=== PATIENT | male | born 1975 | race Two or more races ===

== ENCOUNTER 2017-02-25 09:52 | Inpatient (IN) | payer OTHER ==
[~2017-02-25] VITALS: Ht 175.3 cm; Wt 100.7 kg
[2017-02-25] VITALS (11 sets, daily range): BP systolic 126–143; BP diastolic 76–90
[~2017-02-25 09:52] MED LIST: Atropine Inj 1mg/10ml Syr IV PRN; DiphenhydrAMINE 50mg/ml Inj IVP PRN; Hydromorphone 0.5mg/0.5ml inj IVP PRN; Ketorolac 30mg Inj IV PRN; Ketorolac 60mg Inj IV PRN; LORazepam Inj 2mg/ml 1ml IV PRN; LR 1000ml 1,000 ML IVLG SCH; Meperidine 25mg/0.5ml Inj IV PRN; Metoclopramide 10mg/2ml Inj IVP PRN; Midazolam 2mg/2ml Inj IVP PRN; Norco 5mg/325mg tab ORAL PRN; Norco 7.5mg/325mg tab ORAL PRN; Oxycodone/Acetaminophen 5-325 ORAL PRN; fentaNYL 100 mcg/2 mL IV PRN
[2017-02-25] MEDS ORDERED: Thrombin 5000 units TOPIC ONE (10:43)
[2017-02-25] MEDS ORDERED: Bupivacaine w/Epi 0.5% 30ml Vial INJ ONE (10:43)
[2017-02-25] MEDS ORDERED: Bacitracin 50000 Units Vial ONE (10:44)
[2017-02-25] MEDS ORDERED: Thrombin 5000 units spray kit TOPIC ONE (10:44)
[2017-02-25] MEDS ORDERED: Gelfoam Absorbable 1gm powder pkt TOPIC ONE (10:44)
[2017-02-25] MEDS ORDERED: MELOXICAM15 MG PO (10:53)
[2017-02-25] MEDS ORDERED: PROTONIX20 MG ORAL (10:53)
[2017-02-25] MEDS ORDERED: [UNRECOGNIZED DRUG - OTHER] TP (10:53)
[2017-02-25] MEDS ORDERED: TRAMADOL HCL150 MG ORAL (10:53)
--- NOTE | 2017-02-25 11:27 | Pre-Procedure Note/Attestation ---
Pre-Procedure Note/Attestation Complete Prior to Procedure Planned Procedure: not applicable Procedure Narrative: L4-5, L5/S1 Instability and disc herniations, for ALIF L4-5, L5/S1 Indications for Procedure Pre-Operative Diagnosis: L4-5, L5/S1 Instability and disc herniations Attestation I attest that I discussed the nature of the procedure; its benefits; risks and complications; and alternatives (and the risks and benefits of such alternatives ), prior to the procedure, with the patient (or the patient's legal appliance service representative). I attest that, if there was a reasonable possibility of needing a blood transfusion, the patient (or the patient's legal appliance service representative) was given the [place] Department [employer] Services standardized written summary, pursuant to the [employer] [place] Blood Safety Act ([place] Health and Safety Code # 1645, as amended). I attest that I re-evaluated the patient just prior to the surgery and that there has been no change in the patient's H&P, except as documented below: IVAN VENTURA Feb 25, 2017 11:27
[2017-02-25] MEDS ORDERED: Heparin 5000 units/ml inj ONE (11:44)
[2017-02-25] MEDS ORDERED: Glycopyrrolate 0.2mg/ml 1ml Vial ONE (12:00)
[2017-02-25] MEDS ORDERED: fentaNYL 250mcg/5ml ONE (12:00)
[2017-02-25] MEDS ORDERED: fentaNYL 100 mcg/2 mL IV ONE (12:00)
[2017-02-25] MEDS ORDERED: Sterile Water Irrig 1000ml IRRIG ONE (12:00)
[2017-02-25] MEDS ORDERED: Nimbex 2mg/ml Inj 10ML IVP ONE (12:00)
[2017-02-25] MEDS ORDERED: Atropine Sulfate 0.4mg/ml inj ONE (12:00)
[2017-02-25] MEDS ORDERED: Neostigmine 1mg/ml 10ml Inj ONE (12:00)
[2017-02-25] MEDS ORDERED: Propofol 10mg/ml 20ml IV ONE (12:00)
[2017-02-25] MEDS ORDERED: NS Irrig 1000ml ONE (12:00)
[2017-02-25] MEDS ORDERED: Zemuron 50mg/5ml Inj IV ONE (12:00)
[2017-02-25] MEDS ORDERED: Lidocaine 1% MPF 10mg/ml 5ml ONE (12:00)
[2017-02-25] MEDS ORDERED: LR 1000ml ONE (12:00)
--- NOTE | 2017-02-25 13:20 | Anethesia Preoperative Eval ---
Anesthesia Pre-op PMH/ROS General Date of Evaluation: Feb 25, 2017 Time of Evaluation: 12:11 Anesthesiologist: Carla ASA Score: ASA 3 Mallampati Score Class I : Soft palate, uvula, fauces, pillars visible Class II: Soft palate, uvula, fauces visible Class III: Soft palate, base of uvula visible Class IV: Only hard plate visible Mallampati Classification: Class III Surgeon: Roxanne Diagnosis: Back Pain Surgical Procedure: ACDF L5-S1, L4-5 Anesthesia History: none Family History: no anesthesia problems Allergies: Coded Allergies: No Known Allergies (Unverified , 02/21/17) Medications: see eMAR Past Medical History Cardiovascular: Reports: HTN Gastrointestinal/Genitourinary: Reports: GERD Other: obesity - BMI 33 Anesthesia Pre-op Phys. Exam Physician Exam Last Vital Signs Date Time Temp Pulse Resp B/P Pulse Ox O2 Delivery O2 Flow Rate FiO2 02/25/17 11:04 98.1 52 20 133/89 98 Room Air Constitutional: NAD Neurologic: CN 2-12 intact Cardiovascular: RRR Respiratory: CTA Gastrointestinal: S/NT/ND Airway Exam Mallampati Score: Class III MO: limited ROM: full Teeth: intact Anesthesia Pre-op A/P Risk Assessment & Plan Assessment: ASA 3 Plan: GA, BIS, Glidescope Status Change Before Surgery: No Pre-Antibiotics Dru Grams Ancef IV Given Within 1 Hr of Incision: Yes Time Given: 12:31 Usman Aguirre MD Feb 25, 2017 13:20
--- NOTE | 2017-02-25 13:21 | Immediate Post-Op Evaluation ---
Immediate Post-Op Evalulation Immediate Post-Op Evalulation Procedure: ACDF L4-5, L5-S1 Date of Evaluation: Feb 25, 2017 Time of Evaluation: 15:49 IV Fluids: 1300 Blood Products: 0 Estimated Blood Loss: 50 Urinary Output: 150 Blood Pressure Systolic: 141 Blood Pressure Diastolic: 90 Pulse Rate: 85 Respiratory Rate: 16 O2 Sat by Pulse Oximetry: 100 Temperature (Fahrenheit): 97.5 Pain Score (1-10): 3 Nausea: No Vomiting: No Complications 0 Patient Status: awake, reacts, patent, extubated, none Hydration Status: adequate Dru Grams Ancef IV Given Within 1 Hr of Incision: Yes Time Given: 12:31 Usman Aguirre MD Feb 25, 2017 13:21
[2017-02-25] MEDS ORDERED: Acetaminophen (Non formulary) 100 ML IV ONE (14:00)
[2017-02-25] MEDS ORDERED: LR 1000ml 1,000 ML IVLG SCH (15:15)
[2017-02-25] MEDS ORDERED: Norco 5mg/325mg tab ORAL PRN (15:15)
[2017-02-25] MEDS ORDERED: fentaNYL 100 mcg/2 mL IV PRN (15:15)
[2017-02-25] MEDS ORDERED: Midazolam 2mg/2ml Inj IVP PRN (15:15)
[2017-02-25] MEDS ORDERED: Acetaminophen 650 MG SUPP RECTAL PRN (15:15)
[2017-02-25] MEDS ORDERED: Meperidine 25mg/0.5ml Inj IV PRN (15:15)
[2017-02-25] MEDS ORDERED: LORazepam Inj 2mg/ml 1ml IV PRN (15:15)
[2017-02-25] MEDS ORDERED: Ketorolac 60mg Inj IV PRN (15:15)
[2017-02-25] MEDS ORDERED: Atropine Inj 1mg/10ml Syr IV PRN (15:15)
[2017-02-25] MEDS ORDERED: Hydromorphone 0.5mg/0.5ml inj IVP PRN (15:15)
[2017-02-25] MEDS ORDERED: Ketorolac 30mg Inj IV PRN (15:15)
[2017-02-25] MEDS ORDERED: Metoclopramide 10mg/2ml Inj IVP PRN (15:15)
[2017-02-25] MEDS ORDERED: Oxycodone/Acetaminophen 5-325 ORAL PRN (15:15)
[2017-02-25] MEDS ORDERED: Norco 7.5mg/325mg tab ORAL PRN (15:15)
[2017-02-25] MEDS ORDERED: DiphenhydrAMINE 50mg/ml Inj IVP PRN ×2 (15:15→15:45)
--- NOTE | 2017-02-25 15:17 | Operative Note - PDOC ---
Operative Note Operative Note Chief Complaint: Low back and right leg pain Pre-op Diagnosis: L4-5, L5/S1 Instability and disc herniations Procedure: Anterior Lumbar Discectomy and fusion with InFix device L4-5 & L5/S1 Post-op Diagnosis: same as pre-op Operative Findings: consistent w/pre-op dx studies Surgeon: Roxanne Breast Worker: RONNIE Brito Additional Surgeons: Dr Lindsey - Vascular Access Anesthesiologist: Rayshawn Magallon Anesthesia: general Specimen: none Complications: none Condition: stable Estimated Blood Loss: minimal Drains: none Implant(s) used?: Yes - Cady InFix device X 2, Cady IVAN WERNER Feb 25, 2017 15:17
[2017-02-25] MEDS ORDERED: LORazepam 1mg tab ORAL PRN (15:45)
[2017-02-25] MEDS ORDERED: Rate Change PCA 1 Each MISC PRN (15:45)
[2017-02-25] MEDS ORDERED: Naloxone 0.4mg/ml Inj IVP PRN (15:45)
[2017-02-25] MEDS: PCA HYDROmorphone 1mg/ml 30 ML IV PRN (16:01)
--- NOTE | 2017-02-25 17:46 | Operative Note - Dictated ---
DATE OF OPERATION: 02/25/2017 VASCULAR SURGEON: Tristan Lindsey M.D. SPINE SURGEON: Azeem Oliveira M.D. PREOPERATIVE DIAGNOSIS: Degenerative disk disease. POSTOPERATIVE DIAGNOSIS: Degenerative disk disease. PROCEDURES PERFORMED: 1. Anterior retroperitoneal exposure of L4-L5 vertebral interspace. 2. Anterior retroperitoneal exposure of L5-S1 vertebral interspace. INDICATION: The patient is a very pleasant gentleman, who is seen prior to surgery. He has been scheduled for anterior fusion of L4-5 and L5-S1. He has no history of prior intra-abdominal surgery. No history of deep venous thrombosis or bleeding complications were noted. He has been made aware of the risks of surgery including possibly vascular injury, possible need for blood transfusion, and deep venous thrombosis. DESCRIPTION OF FINDINGS: A vertical midline incision was used. A left retroperitoneal approach was used. There is no peritoneal or ureteral violation. There was a ruiolqln-dh-gwryop inflammatory reaction in the anterior surface of L4-L5 obscuring the borders of the left iliac vein, however, exposure was obtained without vascular injury with retraction of left iliac vessels towards the patient's right. It was confirmed using fluoroscopy. Exposure of L5-S1 was obtained below the iliac bifurcation and once again, confirmed using fluoroscopy. On completion, the peritoneum and ureter were intact, iliac vessels were intact, and had palpable femoral and pedal pulses. ESTIMATED BLOOD LOSS: Approximately 100 mL. COMPLICATIONS: None. DESCRIPTION OF PROCEDURE: The patient was taken to the operating room. General anesthesia was used. IV antibiotics were given. The patient's abdomen was prepped and draped. Appropriate time-out of procedure was taken. A low vertical midline incision was made. The anterior fascia was incised longitudinally in the midline. A plane was identified posterior to the left rectus abdominis developed posterolaterally towards the patient's left. The retroperitoneal space was entered below the arcuate line and the peritoneum and ureter were mobilized towards the patient's right exposing the left common iliac vessels. The dissection was carried out to the left side of the left common iliac artery and vein. Overlying lymphatics were ligated with vascular clips. The iliolumbar vein was identified and ligated with vascular clips and divided. The segmental vessels at L4 were also identified and ligated with vascular clips. This allowed us to retract the left iliac vessels towards the patient's right. There is severe scarring noted anterior to the L4-L5, however, we were able to identify a plane posterior to the iliac vessels and then developed this towards the patient's right and exposed the entirety of the anterior surface of L4-L5. The Omni retractor was set in place along with the use of a Kay blade and then fluoroscopy was used to confirm the appropriate level. Instrumentation was then performed at L4-L5 dictated separately. Retractor was then repositioned below the left common iliac artery and vein. Then, dissection was carried on undersurface of the left common iliac artery and vein. The middle sacral artery and vein were ligated with vascular clips and divided and this allowed us to retract the left common iliac vessels superiorly and laterally exposing the anterior surface of L5 and S1. Once again, the Omni retractor was set in place. Fluoroscopy was then used to confirm the appropriate level. The instrumentation and fusion are performed at L5-S1 dictated separately. On completion, the peritoneum and ureter are intact. The iliac vessels are intact. Anterior fascia was closed using #1 PDS in a running fashion. The skin and subcutaneous tissue were closed using 3-0 Vicryl and 4-0 Monocryl in a running subcuticular closure technique. Estimated blood loss was less than 100 mL. Complications, none. Tristan Lindsey M.D. DR: ROSAMARIA JOB#: [id number] CC:
--- NOTE | 2017-02-25 18:31 | Operative Note - Dictated ---
DATE OF OPERATION: 02/25/2017 SURGEON: Azeem Oliveira M.D. CO-SURGEON: Dr. Lindsey. INSURANCE PLAN SPECIALIST: Mick Enciso ANESTHESIOLOGIST: Dr. Richards. ANESTHESIA: General endotracheal with arterial blood pressure monitoring. PREOPERATIVE DIAGNOSES: 1. Traumatic spondylolysis lumbar spine with a 8-9 millimeter anterior listhesis of L4 and L5 with complete loss of disc height at the L4 level causing significant canal and foraminal stenosis. 2. A 50% collapse of the lumbosacral disc with herniation bulge extending into the lateral recess and right foramen. 3. Chronic ongoing mechanical back pain and right leg pain. POSTOPERATIVE DIAGNOSES: 1. Traumatic spondylolysis lumbar spine with a 8-9 millimeter anterior listhesis of L4 and L5 with complete loss of disc height at the L4 level causing significant canal and foraminal stenosis. 2. A 50% collapse of the lumbosacral disc with herniation bulge extending into the lateral recess and right foramen. 3. Chronic ongoing mechanical back pain and right leg pain. OPERATIVE PROCEDURE: Anterior left retroperitoneal approach to the lumbar spine with rectus mobilization, vessel mobilization protection using a table fixed frame reverse tip blade by Dr. Lindsey. Mobilization of the aorta and vena cava with protection of segmental with an anterior annulotomy at L4-L5 and L5-51 levels. Nuclear diskectomy, partial vertebrectomy, neural foraminotomy and micro neurolysis at both levels with fixation using a medium infix cage at both L4-L5 and L5-S1 levels, 8 millimeters in height with 3+3 degrees of lordosis. Fusion was accomplished with autogenous bone and demineralized bone matrix. Cell-Saver was available and image intensifier was used for placement of the cages and for identification of levels. The patient was prepped and draped in the supine position after induction of satisfactory general anesthesia. Bolster was placed in the lumbar area to create normal lordosis. A left pararectus retroperitoneal approach was accomplished with a superior inferior left pararectus incision. The rectus sheath was opened and the rectus was mobilized and the retroperitoneal space was approached and dissected to the front of the spine, some of the contents were retracted to the right. The aorta and vena cava were identified by Dr. Lindsey and mobilized. There was a dense inflammatory reaction on the right side of the spine encompassing the vessels had made it very hard to free them safely and retract them away from the disk space. Thus when the final mobilization was accomplished only about the left anterior 2/3 of the disc at L4-L5 was approachable because of the adherent anterior tissue at the disc space containing the vessels. At the L5-S1 level middle could be reached with mobilization of the vessels, not a significant problem. At the L4-L5 level, the anterior soft tissues removed. The disc space was identified and #10 blade was used to release the anterior anulus. Anterior osteophytes were removed and then the space was slowly distracted with wedges, removing anterior osteophytes, removing the cartilaginous endplate and the remnants of the disc. Wedge distractors were used from side to side to dissect progressively further posteriorly until the posterior edge of the vertebral body in the posterior lateral corner of both L4 and L5 had been identified and free of the anulus and posterior longitudinal ligament. As the space was distracted, the anterior listhesis was reduced by more than half. The left 2/3 of the disk space was used for the median infix construct, which was templated 8 mm with 3+ 3 degrees of lordosis added, that was checked on x-ray and there was a good contact fit on both sides. The posterior osteophytes were then removed, as the posterior longitudinal ligament and posterior disc anulus was completely released. Bilateral foraminotomy with the Kerrison was done to open up both the right and left foramen. Again, a medium implant template was used and then when the complete posterior dissection was complete, the two endplates 8 millimeters medium with 3+ 3 degrees of tilt of lordosis were tapped into place, checked on x-ray. Side struts were inserted and then cold welded and position was again checked. There was good construct fit on both plates, good distraction, good opening of the foramen and 50% reduction of the spondylolysis at L4-L5. At L5-S1, an anterior annulotomy was done. The anterior osteophytes were removed. The cartilaginous endplates were progressively removed as were remnants of the disc where distraction was used from front to back up to the 12 millimeters to reach the posterior longitudinal ligament posterior disc anulus, which was released and removed. The posterior osteophytic rim on L5 and osteophytes extending into the foramen were also removed. The space was sized up to 8 millimeters with template. An 8 millimeter medium construct was inserted, checked and then cold welded. Demineralized bone matrix was placed within both cages along with autogenous bone that had been harvested during the decompression. Vessels were checked. The wound was closed in layers including anteroposterior sheath, subcutaneous and skin. There was not any significant blood loss. Final x-rays revealed good reconstitution of disc height and overall alignment with wide foraminal opening. Bulky compression dressing was placed and the patient was returned recovery room in good condition. Azeem Oliveira M.D. DR: JARVIS JOB#: [id number] CC: DOREEN
[2017-02-25] MEDS: PCA shift volume MISC SCH (19:00)
[2017-02-25] MEDS: ceFAZolin sod 1 GM in D5W 55 ML IV SCH (20:51)
[2017-02-26 04:00] VITALS: BP 112/63
[2017-02-26] MEDS: ceFAZolin sod 1 GM in D5W 55 ML IV SCH ×3 (05:00→19:42)
[2017-02-26] MEDS: PCA shift volume MISC SCH ×2 (07:08→19:00)
[2017-02-26 08:41] VITALS: BP 120/71
--- NOTE | 2017-02-26 09:45 | 48 Hour Post Anesthesia Eval ---
Post Anesthesia Evaluation Procedure: ACDF L4-5, L5-S1 Date of Evaluation: Feb 26, 2017 Time of Evaluation: 09:44 Blood Pressure Systolic: 124 0: 57 Pulse Rate: 72 Respiratory Rate: 20 Temperature (Fahrenheit): 97.6 O2 Sat by Pulse Oximetry: 98 Airway: patent Nausea: No Vomiting: No Pain Intensity: 3 Hydration Status: adequate Cardiopulmonary Status: stable Mental Status/LOC: patient returned to baseline Follow-up Care/Observations: n/a Post-Anesthesia Complications: none Follow-up care needed: N/A ÁLVARO WALTON M.D. Feb 26, 2017 09:45
[2017-02-26 11:59] VITALS: BP 133/64
[2017-02-26 15:27] VITALS: BP 130/79
[2017-02-26] MEDS: PCA HYDROmorphone 1mg/ml 30 ML IV PRN (16:12)
[2017-02-26 20:00] VITALS: BP 121/70
[2017-02-27] VITALS: BP 129/64
[2017-02-27 04:00] VITALS: BP 119/64
[2017-02-27] MEDS: ceFAZolin sod 1 GM in D5W 55 ML IV SCH (04:41)
[2017-02-27] MEDS: PCA shift volume MISC SCH ×2 (07:22→19:00)
[2017-02-27 07:50] LABS: ANION GAP 10 (5-15); CALCIUM 8.6 mg/dL (8.6-10.2); CARBON DIOXIDE 28 mEQ/L (20-30); CHLORIDE 99 mEQ/L (98-107); CREATININE 0.9 mg/dL (0.7-1.2); GLOMERULAR FILTRATION RATE > 60 mL/min (>60); HEMOLYSIS 4; POTASSIUM 4.1 mEQ/L (3.4-4.9); SODIUM 137 mEQ/L (135-145)
[2017-02-27 08:00] VITALS: BP 115/63
--- NOTE | 2017-02-27 10:02 | Diagnostic Imaging Report ---
Indications: Back pain, lumbar fusion Technique: Above procedure including fluoroscopy performed by Dr. Cornell. Portable intraoperative spot film images of lower lumbar spine performed in AP and lateral projections. Findings: Comparison: None Initial image demonstrates surgical implement and needle tip anterior to the L4-5 disc space. L4-5 and L5-S1 disc space is narrowed with marginal osteophyte formation. Subsequent images demonstrate placement of fusion hardware within the same 2 disc spaces. IMPRESSION: Surgical changes as described
[2017-02-27 12:00] VITALS: BP 119/71
--- NOTE | 2017-02-27 13:09 | General Surgery Progress Note ---
General Surgery-Progress Note Subjective Procedure Performed Anterior Lumbar Discectomy and fusion with InFix device L4-5 & L5/S1 Symptoms: improved Objective Last 24 Hour Vital Signs Date Time Temp Pulse Resp B/P Pulse Ox O2 Delivery O2 Flow Rate FiO2 02/27/17 12:40 17 02/27/17 12:00 97.9 75 18 119/71 96 Room Air 02/27/17 08:00 98.2 79 17 115/63 94 Room Air 02/27/17 08:00 16 02/27/17 04:00 98.8 83 18 119/64 96 Room Air 02/27/17 00:00 17 02/27/17 00:00 98.4 85 18 129/64 93 Room Air 02/26/17 20:00 99.0 80 18 121/70 94 Room Air 02/26/17 20:00 17 02/26/17 16:00 16 02/26/17 15:27 98.1 76 20 130/79 97 Room Air I&O Intake and Output 02/26/17 02/27/17 19:00 07:00 Intake Total 1055 ml 100 ml Output Total 1350 ml Balance -295 ml 100 ml Intake IV Total 1055 ml 100 ml Output Urine Total 1350 ml # Voids 2 Dressing: dry Wound: clean Drains: none Laboratory Tests Test 02/27/17 05:20 Sodium Level 137 mEQ/L (135-145) Potassium Level 4.1 mEQ/L (3.4-4.9) Chloride Level 99 mEQ/L (98-107) Carbon Dioxide Level 28 mEQ/L (20-30) Anion Gap 10 (5-15) Blood Urea Nitrogen 13 mg/dL (7-23) Creatinine 0.9 mg/dL (0.7-1.2) Estimat Glomerular Filtration Rate > 60 mL/min (>60) Glucose Level 116 mg/dL (74-106) H Calcium Level 8.6 mg/dL (8.6-10.2) Additional Comments Patient was not ambulated yesterday due to holiday and no Physical Therapists available. Will beegin today. Leg pain improved with 5/5 strength in both legs. Wound pain worse today. D/C lynn. IVAN Fairbanks Feb 27, 2017 13:09
[2017-02-27] MEDS ORDERED: Naloxone 0.4mg/ml Inj IVP PRN ×2 (15:15→16:00)
[2017-02-27] MEDS ORDERED: Norco 7.5mg/325mg tab ORAL PRN ×2 (15:15)
[2017-02-27] MEDS ORDERED: HYDROmorphone 1mg/ml Carpuject SUBQ PRN (15:15)
[2017-02-27] MEDS ORDERED: HYDROmorphone 1mg/ml Carpuject IVP PRN (15:15)
[2017-02-27 16:00] VITALS: BP 120/75
[2017-02-27] MEDS ORDERED: LORazepam 1mg tab ORAL PRN (16:00)
[2017-02-27] MEDS ORDERED: Rate Change PCA 1 Each MISC PRN (16:00)
[2017-02-27] MEDS ORDERED: DiphenhydrAMINE 50mg/ml Inj IVP PRN (16:00)
[2017-02-27] MEDS: PCA HYDROmorphone 1mg/ml 30 ML IV PRN (16:41)
--- NOTE | 2017-02-27 19:37 | General Progress Note ---
Assessment/Plan Assessment/Plan Low back and right leg pain L4-5, L5/S1 Instability and disc herniations Anterior Lumbar Discectomy and fusion with InFix device L4-5 & L5/S1 PLAN 1. incentive spirometry 2. SCD 3. PT evaluation and therapy 4. Hydration; Po diet per surgery 5. Pain management 6. discharge once stable with outpatient follow up Subjective Allergies: Coded Allergies: No Known Allergies (Unverified , 02/21/17) Subjective care noted and reviewed findings discussed Objective Last 24 Hour Vital Signs Date Time Temp Pulse Resp B/P Pulse Ox O2 Delivery O2 Flow Rate FiO2 02/27/17 16:12 17 02/27/17 16:00 97.5 65 18 120/75 95 Room Air 02/27/17 12:40 17 02/27/17 12:00 97.9 75 18 119/71 96 Room Air 02/27/17 08:00 98.2 79 17 115/63 94 Room Air 02/27/17 08:00 16 02/27/17 04:00 98.8 83 18 119/64 96 Room Air 02/27/17 00:00 17 02/27/17 00:00 98.4 85 18 129/64 93 Room Air 02/26/17 20:00 99.0 80 18 121/70 94 Room Air 02/26/17 20:00 17 Intake and Output 02/26/17 02/27/17 19:00 07:00 Intake Total 1055 ml 100 ml Output Total 1350 ml Balance -295 ml 100 ml Intake IV Total 1055 ml 100 ml Output Urine Total 1350 ml # Voids 2 Laboratory Tests 02/27/17 05:20: Sodium Level 137, Potassium Level 4.1, Chloride Level 99, Carbon Dioxide Level 28, Anion Gap 10, Blood Urea Nitrogen 13, Creatinine 0.9, Estimat Glomerular Filtration Rate > 60, Glucose Level 116H, Calcium Level 8.6 Height (Feet): 5 Height (Inches): 9.00 Weight (Pounds): 222 Objective WDWN NAD clear breath sounds bilaterally without rhonchi or wheeze [id number] without MRG tender abdomen no HSM no CCE nonfocal BRENT STEWARD Feb 27, 2017 19:37
[2017-02-27 20:41] VITALS: BP 118/74
[2017-02-28 00:30] VITALS: BP 116/64
[2017-02-28 04:32] VITALS: BP 120/70
[2017-02-28] MEDS: PCA shift volume MISC SCH ×2 (07:07→19:19)
[2017-02-28 08:17] VITALS: BP 119/76
--- NOTE | 2017-02-28 08:49 | General Progress Note ---
Assessment/Plan Assessment/Plan Low back and right leg pain L4-5, L5/S1 Instability and disc herniations Anterior Lumbar Discectomy and fusion with InFix device L4-5 & L5/S1 PLAN 1. incentive spirometry 2. SCD 3. PT evaluation and therapy 4. Hydration; ? clear diet today 5. Pain management 6. discharge once stable with outpatient follow up Subjective Allergies: Coded Allergies: No Known Allergies (Unverified , 02/21/17) Subjective care noted and reviewed findings discussed patient ambulatory Objective Last 24 Hour Vital Signs Date Time Temp Pulse Resp B/P Pulse Ox O2 Delivery O2 Flow Rate FiO2 02/28/17 08:17 98.1 73 16 119/76 96 Room Air 02/28/17 08:00 18 02/28/17 04:32 98.1 82 19 120/70 96 Room Air 02/28/17 04:00 18 02/28/17 00:30 98.2 77 17 116/64 98 Room Air 02/28/17 00:00 18 02/27/17 20:41 99.5 78 18 118/74 94 Room Air 02/27/17 20:00 18 02/27/17 16:12 17 02/27/17 16:00 97.5 65 18 120/75 95 Room Air 02/27/17 12:40 17 02/27/17 12:00 97.9 75 18 119/71 96 Room Air Intake and Output 02/27/17 02/28/17 19:00 07:00 Intake Total 1200 ml 600 ml Output Total 650 ml 350 ml Balance 550 ml 250 ml Intake IV Total 1200 ml 600 ml Output Urine Total 650 ml 350 ml # Voids 1 Height (Feet): 5 Height (Inches): 9.00 Weight (Pounds): 222 Objective WDWN NAD clear breath sounds bilaterally without rhonchi or wheeze [id number] without MRG tender abdomen no HSM no CCE nonfocal BRENT STEWARD Feb 28, 2017 08:49
--- NOTE | 2017-02-28 09:55 | General Surgery Progress Note ---
General Surgery-Progress Note Subjective Procedure Performed Anterior Lumbar Discectomy and fusion with InFix device L4-5 & L5/S1 Symptoms: improved Objective Last 24 Hour Vital Signs Date Time Temp Pulse Resp B/P Pulse Ox O2 Delivery O2 Flow Rate FiO2 02/28/17 08:17 98.1 73 16 119/76 96 Room Air 02/28/17 08:00 18 02/28/17 04:32 98.1 82 19 120/70 96 Room Air 02/28/17 04:00 18 02/28/17 00:30 98.2 77 17 116/64 98 Room Air 02/28/17 00:00 18 02/27/17 20:41 99.5 78 18 118/74 94 Room Air 02/27/17 20:00 18 02/27/17 16:12 17 02/27/17 16:00 97.5 65 18 120/75 95 Room Air 02/27/17 12:40 17 02/27/17 12:00 97.9 75 18 119/71 96 Room Air I&O Intake and Output 02/27/17 02/28/17 19:00 07:00 Intake Total 1200 ml 700 ml Output Total 650 ml 350 ml Balance 550 ml 350 ml Intake IV Total 1200 ml 700 ml Output Urine Total 650 ml 350 ml # Voids 1 Dressing: dry Wound: clean Drains: none Additional Comments Overall less low back pain. Still no lower GI track activity. PT /OT working with patient. Dr. Laboy following IVAN VENTURA Feb 28, 2017 09:55
[2017-02-28 12:00] VITALS: BP 130/84
[2017-02-28 16:00] VITALS: BP 133/64
[2017-02-28] MEDS: PCA HYDROmorphone 1mg/ml 30 ML IV PRN (17:08)
[2017-02-28 20:00] VITALS: BP 140/91
[2017-03-01 00:29] VITALS: BP 120/71
[2017-03-01 04:00] VITALS: BP 114/58
[2017-03-01] MEDS: PCA shift volume MISC SCH (07:13)
[2017-03-01 08:00] VITALS: BP 127/74
--- NOTE | 2017-03-01 10:44 | General Progress Note ---
Assessment/Plan Assessment/Plan Low back and right leg pain L4-5, L5/S1 Instability and disc herniations Anterior Lumbar Discectomy and fusion with InFix device L4-5 & L5/S1 PLAN 1. incentive spirometry 2. SCD 3. PT evaluation and therapy 4. clear diet today 5. Pain management 6. discharge once stable with outpatient follow up Subjective Allergies: Coded Allergies: No Known Allergies (Unverified , 02/21/17) Subjective care noted and reviewed findings discussed patient ambulatory Objective Last 24 Hour Vital Signs Date Time Temp Pulse Resp B/P Pulse Ox O2 Delivery O2 Flow Rate FiO2 03/01/17 08:00 98.8 77 20 127/74 99 Room Air 03/01/17 08:00 16 03/01/17 04:00 16 03/01/17 04:00 98.2 69 18 114/58 94 Room Air 03/01/17 00:29 98.1 68 19 120/71 97 Room Air 03/01/17 00:00 17 02/28/17 20:00 98.2 74 19 140/91 97 Room Air 02/28/17 20:00 16 02/28/17 16:00 98.0 80 20 133/64 99 Room Air 02/28/17 16:00 18 02/28/17 12:00 97.3 79 20 130/84 100 Room Air 02/28/17 12:00 18 Intake and Output 02/28/17 03/01/17 19:00 07:00 Intake Total 1000 ml 1200 ml Output Total 600 ml Balance 400 ml 1200 ml Intake IV Total 1000 ml 1200 ml Output Urine Total 600 ml Height (Feet): 5 Height (Inches): 9.00 Weight (Pounds): 222 Objective WDWN NAD clear breath sounds bilaterally without rhonchi or wheeze [id number] without MRG tender abdomen no HSM no CCE nonfocal BRENT STEWARD Mar 01, 2017 10:44
[2017-03-01 12:00] VITALS: BP 123/69
[2017-03-01] MEDS ORDERED: Naloxone 0.4mg/ml Inj IVP PRN ×2 (12:00→16:00)
[2017-03-01] MEDS ORDERED: Rate Change PCA 1 Each MISC PRN (12:00)
[2017-03-01] MEDS ORDERED: PCA HYDROmorphone 1mg/ml 30 ML IV PRN (12:00)
[2017-03-01] MEDS ORDERED: DiphenhydrAMINE 50mg/ml Inj IVP PRN (12:00)
[2017-03-01] MEDS ORDERED: LORazepam 1mg tab ORAL PRN (12:00)
[2017-03-01] MEDS ORDERED: Norco 7.5mg/325mg tab ORAL PRN ×4 (14:30→16:00)
[2017-03-01] MEDS ORDERED: HYDROmorphone 1mg/ml Carpuject SUBQ PRN ×2 (14:30→16:00)
[2017-03-01] MEDS ORDERED: HYDROmorphone 1mg/ml Carpuject IVP PRN ×2 (14:30→16:00)
[2017-03-01 16:00] VITALS: BP 132/82
[2017-03-01] MEDS ORDERED: PCA shift volume MISC SCH (19:00)
[2017-03-01 20:00] VITALS: BP 132/83
[2017-03-02 04:00] VITALS: BP 120/75
[2017-03-02 08:00] VITALS: BP 125/82
--- NOTE | 2017-03-02 09:52 | General Progress Note ---
Assessment/Plan Assessment/Plan Low back and right leg pain L4-5, L5/S1 Instability and disc herniations Anterior Lumbar Discectomy and fusion with InFix device L4-5 & L5/S1 PLAN 1. incentive spirometry 2. SCD 3. PT evaluation and therapy 4. advance diet 5. Pain management 6. discharge today Subjective Allergies: Coded Allergies: No Known Allergies (Unverified , 02/21/17) Subjective care noted and reviewed tolerating diet Objective Last 24 Hour Vital Signs Date Time Temp Pulse Resp B/P Pulse Ox O2 Delivery O2 Flow Rate FiO2 03/02/17 08:00 98.2 71 20 125/82 100 Room Air 03/02/17 04:00 98.6 66 18 120/75 99 Room Air 03/01/17 23:48 98.3 03/01/17 20:00 98.3 65 18 132/83 99 Room Air 03/01/17 16:00 98.8 72 20 132/82 99 Room Air 03/01/17 12:00 16 03/01/17 12:00 98.1 76 18 123/69 99 Room Air Intake and Output 03/01/17 03/02/17 19:00 07:00 Intake Total 2130 ml Output Total 1450 ml Balance 680 ml Intake Oral 1130 ml IV Total 1000 ml Output Urine Total 1450 ml Height (Feet): 5 Height (Inches): 9.00 Weight (Pounds): 222 Objective WDWN NAD clear breath sounds bilaterally without rhonchi or wheeze [id number] without MRG tender abdomen no HSM no CCE nonfocal BRENT STEWARD Mar 02, 2017 09:52
[2017-03-02] MEDS ORDERED: NORCO 10-325 T1 EACH ORAL ×2 (10:47)
[2017-03-02] MEDS ORDERED: Tubing IV Secondary IV ONE (11:56)
[2017-03-02] MEDS ORDERED: NS 550ML IV ONE (11:56)
[2017-03-03] MEDS ORDERED: HYDROmorphone 1mg/ml Carpuject SUBQ PRN (12:00)
[2017-03-03] MEDS ORDERED: Norco 7.5mg/325mg tab ORAL PRN ×2 (12:00)
[2017-03-03] MEDS ORDERED: HYDROmorphone 1mg/ml Carpuject IVP PRN (12:00)
--- NOTE | 2017-03-04 06:34 | Discharge Summary ---
Discharge Summary Hospital Course Date of Admission Feb 25, 2017 at 09:52 Date of Discharge Mar 02, 2017 at 11:57 Admitting Diagnosis L4-5, L5/S1 Instability and disc herniations chronic ongoing mechanical back pain and right leg pain Reason for Hospitalization: elective surgery HPI Ernesto Keller is a 42 year old male who was admitted on Feb 25, 2017 for chronic ongoing mechanical back pain and right leg pain. Conservative measures failed and patient was admitted for elective surgery Consultations dr llamas -IM Procedures 02/25/17 dr Oliveira ACDF L4-5, L5-S1 with InFix device 02/25/17 -dr Lindsey 1. Anterior retroperitoneal exposure of L4-L5 vertebral interspace. 2. Anterior retroperitoneal exposure of L5-S1 vertebral interspace. 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 L4-5, L5/S1 Instability and disc herniations s/p 02/25 ACDF L4-5, L5-S1 with InFix device Discharge Medications Continued Medications: Hydrocodone Bit/Acetaminophen 10-325* ([place] 10-325*) 1 Each Tablet 1 TAB ORAL Q4H PRN for For Pain, #30 TAB 0 Refills PRN PAIN Hydrocodone Bit/Acetaminophen 10-325* ([place] 10-325*) 1 Each Tablet 1 TAB ORAL Q6H PRN for For Pain, #30 TAB 0 Refills PRN PAIN Discharge Condition Upon Discharge: stable Discharge Disposition Patient was discharged to Home () Discharge Diagnoses: Discharge Instructions Discharge Instructions Special Instructions I have been assigned to complete a D/C Summary on this account. I was not involved in the patient management Maura Ghotra NP ([place]) Mar 04, 2017 06:34
== END 2017-03-02 11:57 | disposition home or self-care (01) | DRG 460 ==
LOC: SDSOVERFLO 09:52 → 3E 17:00
PROC: 0SG00A0 Fusion of Lumbar Vertebral Joint with Interbody Fusion Device, Anterior Approach, Anterior Column, Open Approach (ICD-10-PCS; principal; 2017-02-25 12:00)
PROC: 0SG30A0 Fusion of Lumbosacral Joint with Interbody Fusion Device, Anterior Approach, Anterior Column, Open Approach (ICD-10-PCS; principal; 2017-02-25 12:00)
PROC: 0SB40ZZ Excision of Lumbosacral Disc, Open Approach (ICD-10-PCS; principal; 2017-02-25 12:00)
PROC: 0SB20ZZ Excision of Lumbar Vertebral Disc, Open Approach (ICD-10-PCS; principal; 2017-02-25 12:00)
DX: M48.36 Traumatic spondylopathy, lumbar region (principal); M53.2X6 Spinal instabilities, lumbar region; M48.37 Traumatic spondylopathy, lumbosacral region; M53.2X7 Spinal instabilities, lumbosacral region; M51.26 Other intervertebral disc displacement, lumbar region; M51.27 Other intervertebral disc displacement, lumbosacral region
CPT/HCPCS: 36415; 72020; 76001; 80048; 86850; 86900; 86901; 87081; 94003; 94150; J2405; J2710